=== PATIENT | male | born 1960 | race Asian ===

== ENCOUNTER 2024-01-23 21:33 | Emergency (ER) | payer OTHER, SELFPAY ==
[2024-01-23 21:37] VITALS: BP 122/75
[2024-01-23 21:39] VITALS: BP 122/75
[2024-01-23 21:43] VITALS: BMI 29.9
[2024-01-23 21:54] LABS: % Basophils 0.8 % (0-2); % Eosinophils 2.6 % (0-6); % Immature Granulocytes 0.9 % (0-0.5); % Lymphocytes 33.7 % (20.5-51.1); % Monocytes 7.7 % (1.7-9.3); % Neutrophils 54.3 % (42.2-75.2); Absolute Basophils 0.1 10^3/uL (0-0.2); Absolute Eosinophils 0.2 10^3/uL (0-0.7); Absolute Immature Granulocytes 0.1 10^3/uL (0-0.05); Absolute Lymphocytes 2.2 10^3/uL (1.2-3.4); Absolute Monocytes 0.5 10^3/uL (0.1-0.6); Absolute Neutrophils 3.5 10^3/uL (1.4-6.5); Hemoglobin 13.7 g/dL (13.0-18.0); Mean Corp Hgb Conc. 32.6 g/dL (33.0-37.0); Mean Corpuscular Hgb 24.1 pg (27.0-31.0); Mean Corpuscular Volume 73.8 fL (80.0-94.0); Mean Platelet Volume 9.5 fL (7.4-10.4); Nucleated Red Blood Cells % 0 % (-); Platelet Count 317 10^3/uL (130-400); Red Blood Cell Count 5.69 10^6/uL (4.70-6.10); Red Cell Dist. Width 15.6 % (11.5-14.5); White Blood Cell Count 6.5 10^3/uL (4.8-10.8)
--- NOTE | 2024-01-23 21:57 | ED.GENMED ---
History of Present Illness
<MARISA Rasmussen - Last Filed: 01/24/24 01:47>
General
Chief Complaint: Chest Pain
Time Seen by Provider: 01/23/24 21:57
History of Present Illness
History of Present Illness:
Pt is a 66 y/o male presenting with chest pain x1 month. He states he just went to [place] on vacation 1 month ago and began to experience symptoms. He states it feels like a pressure in his left breast that does not radiate anywhere. He states the
symptoms come on when he physically exerts himself. He states rest does not help and the symptoms usually just go away after 15-20 minutes. He states the past 2 days the symptoms have been constant and that is why he wanted to come to the hospital.
He was given aspirin and nitroglycerin by EMS which relieved his symptoms. He currently denies any symptoms. He states he has had similar symptoms in the past and it was reflux. He denies any dizziness, vision changes, SOB, palpitations, abdominal
pain, nausea, vomiting, diarrhea, constipation, swelling in the legs.
Phy Exam
<MARISA Rasmussen - Last Filed: 01/24/24 01:47>
Physical Exam
Physical Exam:
GENERAL: Alert , in no apparent distress
EYE: pupils equal and reactive
NECK: Supple, no significant adenopathy.
CARDIAC: Regular rate and rhythm .
LUNGS: Clear breath sounds bilaterally, no acute respiratory distress, no wheezes/rales/rhonchi
ABDOMEN: Soft, nondistended, nontender, no cvat
NEUROLOGICAL: Alert and oriented, no focal neuro deficits
SKIN: Warm and dry, skin intact.
MUSCULOSKELETAL: No edema, well perfused.
PSYCH: Normal and appropriate interaction.
Scores
<MARISA Rasmussen - Last Filed: 01/24/24 01:47>
Heart Score for Chest Pain Patients
STEMI patient?: No
History: Moderately Suspicious
ECG: Normal
Age: >/= 65 years
Risk Factors: >/= 3 Risk Factors or History of CAD
Troponin: </= Normal Limit
Heart Score for Chest Pain Patients: 5
Heart Score Risk: 20.3% MACE over next 6 weeks
Course
<Rusty Richardson [facility] - Last Filed: 01/24/24 01:47>
Orders/Labs/Results
Orders:
Orders
01/23/24 21:38
Electrocardiogram (*1) Urgent
Reason for Study: Chest Pain
Cardiac Monitoring- Treatment ONCE
EKG- Treatment ONCE
IV Insert/Care/Rem.- Treatment PRN
O2 Therapy [RESP] Urgent
Titrate/Wean O2 to maintain O2 sat greater than (%): 90
Special Instructions: Maintain sats >/=90%
Pulse Ox/spot Check [RESP] Urgent
Quantity: 1
Special Instructions: ON ROOM AIR
01/23/24 21:43
Complete Blood Count/With Diff Urgent
Comprehensive Metabolic Panel Urgent
Troponin I Urgent
01/23/24 23:24
CR Chest - 2 Views Urgent
Comment:
Reason For Exam: chest pain
01/24/24 00:38
Troponin I Urgent
Abnormal Lab Results
01/23/24
21:43
MCV 73.8 L fL
(80.0-94.0)
MCH 24.1 L pg
(27.0-31.0)
MCHC 32.6 L g/dL
(33.0-37.0)
RDW 15.6 H %
(11.5-14.5)
Abs Immat Gran (auto) 0.1 H 10^3/uL
(0-0.05)
Immature Gran % 0.9 H %
(0-0.5)
BUN 22 H mg/dl
(9-20)
Glucose 254 H mg/dl
(70-99)
01/23/24 21:43
01/23/24 21:43
Vital Signs
Initial and Last Documented VS:
Initial Vital Signs
BP
122/75
01/23/24 21:37
Last Documented Vital Signs
Temp Pulse Resp BP Pulse Ox
97.9 F 89 13 118/83 96
01/23/24 21:39 01/24/24 01:30 01/24/24 00:20 01/24/24 01:00 01/24/24 01:30
mae;Shayne Calle, - Last Filed: 01/24/24 01:35>
Orders/Labs/Results
Orders:
Orders
01/23/24 21:38
Electrocardiogram (*1) Urgent
Reason for Study: Chest Pain
Cardiac Monitoring- Treatment ONCE
EKG- Treatment ONCE
IV Insert/Care/Rem.- Treatment PRN
O2 Therapy [RESP] Urgent
Titrate/Wean O2 to maintain O2 sat greater than (%): 90
Special Instructions: Maintain sats >/=90%
Pulse Ox/spot Check [RESP] Urgent
Quantity: 1
Special Instructions: ON ROOM AIR
01/23/24 21:43
Complete Blood Count/With Diff Urgent
Comprehensive Metabolic Panel Urgent
Troponin I Urgent
01/23/24 23:24
CR Chest - 2 Views Urgent
Comment:
Reason For Exam: chest pain
01/24/24 00:38
Troponin I Urgent
Abnormal Lab Results
01/23/24
21:43
MCV 73.8 L fL
(80.0-94.0)
MCH 24.1 L pg
(27.0-31.0)
MCHC 32.6 L g/dL
(33.0-37.0)
RDW 15.6 H %
(11.5-14.5)
Abs Immat Gran (auto) 0.1 H 10^3/uL
(0-0.05)
Immature Gran % 0.9 H %
(0-0.5)
BUN 22 H mg/dl
(9-20)
Glucose 254 H mg/dl
(70-99)
01/23/24 21:43
01/23/24 21:43
Vital Signs
Initial and Last Documented VS:
Initial Vital Signs
BP
122/75
01/23/24 21:37
Last Documented Vital Signs
Temp Pulse Resp BP Pulse Ox
97.9 F 89 13 118/83 96
01/23/24 21:39 01/24/24 01:30 01/24/24 00:20 01/24/24 01:00 01/24/24 01:30
<MARISA Rasmussen - Last Filed: 01/24/24 01:47>
MDM/Problems Addressed
Differential Diagnosis Includes:
Differential includes but is not limited to IL, angina, GERD, hiatal hernia, pulmonary embolism, etc.
<MARISA Rasmussen - Last Filed: 01/24/24 01:47>
*Pulse Oximetry
Patient hypoxic: no
*EKG
Interpreted by ED Provider?: Yes
EKG Intrepretation Date: 01/23/24
Interpretation: abnormal
Comparison EKG: no comparison EKG present
Heart Rate: 97
Rate: normal
Rhythm: sinus
[place]: normal axis
Interval: normal interval
QRS Pattern: normal QRS
Ischemia: no ischemia
*Rotor Casting Machine Setup Operator Interpretation
Rate: Rotor Casting Machine Setup Operator- N/A
*Critical Care Note
Total Time (30-74mins, 75-104mins- exclusive of procedures): Not Applicable
ED Attending Note
<MARISA Rasmussen - Last Filed: 01/24/24 01:47>
-
Portions of this chart may have been created with voice recognition software.� Occasional wrong word or��sound alike� substitutions may have occurred due to the inherent limitations of voice recognition software.
<Shayne Calle DO - Last Filed: 01/24/24 01:35>
ED Attending Note
Patient seen and examined by attending physician: Yes
I performed the substantive portion of visit, reviewed & personally made and approve the management plan that is documented in note by myself or ROSA.: Yes
ED Attending Note:
I have reviewed Rusty's note.
Patient presents for evaluation due to episodic chest pain. Patient has been having pain with exertion for the past few weeks or so. Pain began 3 weeks ago. Patient states he began having the pain preceding his trip to [place]. While vacationing
he would have chest pain particularly at the end of the day when he became exhausted. Pain would last for 15 to 20 minutes and go away with rest. Patient became concerned today because he had episode without exertion. He was at rest. Pain is
gone now. It went away with nitro. Nitro was given by paramedics.
General: Awake, Alert, Oriented X3. No acute distress.
Vitals: unremarkable
Head: Atraumatic
Eyes: Pupils equal, EOMI
Throat: Airway intact, no exudates
Neck: Trachea midline
Lungs: Clear and equal b/l
Heart: Regular rate, no murmurs
Abd: Soft, Nontender, No pulsatile mass
Neuro: Nonfocal
Skin: Warm, dry, no rash
Extremities: pulses equal b/l, no edema
EKG: No ischemic changes
Plan is to repeat troponin 3 hours from the first. This troponin popsicle require hospitalization. If the troponin remains undetectable we will discharge him with outpatient follow-up on the chest pain outlined
Discharge Plan
Departure
Patient Disposition: Home (Routine Discharge)
Date of Disposition: 01/24/24
Time of Disposition: 01:34
Patient with high blood pressure during this ER visit?: No
Condition: Good
Discharge Problem:
Chest pain
Instructions: Chest Pain DCA Follow Up
Referrals:
Emmanuel Olson MD [Active] -
UNKNOWN - PT DOES,NOT KNOW [Family Provider] -
Interventions
Interventions:
*Risk Screen - Suicide Last Done: 01/23/24 21:40
*General Assessment Last Done: 01/23/24 21:39
*Neglect/Abuse Screening Last Done: 01/23/24 21:40
ED- Fall Risk Assessment Last Done: 01/23/24 21:40
*ED COVID-19 Vaccine History Last Done: 01/23/24 21:40
*Nursing Disposition Last Done: 01/24/24 01:43
ED- Cardiac Assessment Last Done: 01/23/24 21:41
Discharge Date and Time
Discharge Date/Time: 01/24/24 01:44
Print Language: BULGARIAN
[2024-01-23 22:00] VITALS: BP 102/64
[2024-01-23 22:14] LABS: ALT (SGPT) 23 U/L (0-50); AST (SGOT) 22 U/L (17-59); Albumin 4.3 g/dl (3.5-5.0); Alkaline Phosphatase 45 U/L (38-126); Blood Urea Nitrogen 22 mg/dl (9-20); Calcium 9.9 mg/dl (8.4-10.2); Carbon Dioxide 27 mmol/L (22-30); Chloride 104 mmol/L (98-107); Estimated Creatinine Clearance 75 ml/min; Glucose 254 mg/dl (70-99); Sodium 138 mmol/L (135-145); Total Bilirubin 0.3 mg/dl (0.2-1.3); Total Protein 6.4 g/dl (6.3-8.2); eGFR > 60.00
[2024-01-23 22:18] LABS: Troponin I < 0.012 ng/ml
[2024-01-23 23:00] VITALS: BP 116/69
[2024-01-24 00:20] VITALS: BP 115/70
[2024-01-24 01:00] VITALS: BP 118/83
[2024-01-24 01:08] LABS: Troponin I < 0.012 ng/ml
== END 2024-01-24 01:44 | disposition home or self-care (01) ==
LOC: EMR 21:33
PROVIDERS: Emergency Medicine; EMERGENCY PHYSICIAN Emergency Medicine
DX: R07.89 Other chest pain (principal); I25.10 Atherosclerotic heart disease of native coronary artery without angina pectoris; K21.9 Gastro-esophageal reflux disease without esophagitis
CPT/HCPCS: 99283; 71046; 80053; 84484; 85025; 93005

== ENCOUNTER → 2024-02-03 07:29 | Outpatient (REF) | payer OTHER, SELFPAY | LOC: DHCBC/DCA 07:29 | PROVIDERS: ATTENDING PHYSICIAN Internal Medicine Cardiovascular Disease; FAMILY PHYSICIAN Family Medicine | DX: R07.2 Precordial pain (principal) | CPT/HCPCS: 78452; 93017; A9500 ==

== ENCOUNTER 2024-02-13 06:26 | Day surgery (SDC) | payer OTHER, SELFPAY ==
[2024-02-13] VITALS (17 sets, daily range): BP systolic 109–142; BP diastolic 69–91; BMI 28.9
[2024-02-13] MEDS: NSS 243 ML IV (07:02)
[2024-02-13 07:26] LABS: Glucose - Point of Care 237 mg/dl (70-99)
--- NOTE | 2024-02-13 09:08 | ITS.CL.CATH ---
Addendum entered and electronically signed by Brad Metcalf MD 02/13/24 18:41:
Correction: The primary physician for this patient is Erwin Díaz MD not Anderson Walden MD
Original Note:
Rn Managed Care - Catheterization
Cardiac Catheterization
Procedure Report:
CARDIAC CATHETERIZATION REPORT
Date of Procedure: 02/13/2024
Referring: Brad Metcalf MD
Indication: Recent onset exertional angina with worsening pattern and markedly ischemic stress test
�
HEMODYNAMIC DATA
AO: 140/76
LV: 140/12
�
LEFT VENTRICULOGRAPHY: Normal left ventricular wall motion with EF 61%
�
CORONARY ANGIOGRAPHY
Dominance: Right
Left Main: Normal
LAD: 90% mid LAD stenosis immediately distal to the takeoff of the medium sized first diagonal branch and small first septal spout liner helper. The lesion spans the takeoff of the large second diagonal branch. The remainder of the LAD system has trivial
luminal disease.
Circumflex: 40-50% mid circumflex stenosis distal to the takeoff of the medium sized OM1 and proximal to the takeoff of the medium to large OM 2. The circumflex terminates with a large OM 3 which has mild luminal irregularities
RCA: The RCA is dominant with no significant disease in the RCA proper. The acute marginal branch supplies the PDA territory. The RCA terminates with two small to medium sized right posterolateral branches
Angioplasty: Large diagonal branch conclusion of the diagnostic study we proceeded with PCI of the LAD lesion. This was a bifurcation lesion, Navarrete (1,1,0). Heparin was used for anticoagulation. A 6 M[place] EBU 3.5 guide catheter was advanced to
the left coronary ostium. A short BMW wire was advanced through the lesion and preferred the large second diagonal branch. A long BMW wire was then advanced into the distal LAD. The LAD was predilated with a 2.25 x 10 Euphora balloon to 8 adri.
This was followed by placement of a 3.0 x 12 [place] frontier BOBBY deployed at 14 adri then postdilated with a 3.0 NC Euphora to 15 adri. The final angiographic result was outstanding with no residual stenosis and no compromise to the large now jailed
second diagonal branch. There were no procedural complications.
�
Closure Device: None-the procedure was performed via the right radial artery. The Ayaan's test was normal prior to the procedure.
�
Radiation (mGy): 861
DAP (cm2.Gy): 63.9
Fluoroscopy time: 9.6 minutes
�
CONCLUSIONS
1:�Normal left ventricular function with EF 61%
2:��CAD as described above
3. Successful stenting of 90% mid LAD stenosis using 3.0 x 12 [place] frontier BOBBY with outstanding angiographic result
4. Recommend dual antiplatelet therapy for 6-12 months then lifelong uninterrupted aspirin therapy
5. Continue aggressive risk factor modification efforts. We will increase the rosuvastatin dose to 20 mg daily at this time
�
�
Copy to: Brad Metcalf MD,Anderson Walden MD
�
Brad Metcalf MD, [facility], [facility]
--- NOTE | 2024-02-13 13:40 | W.PN.UPDATE ---
Update Note
Progress Note Update
64 yo male s/p PCI LAD (same day). He feels good, no cp, sob, katty diet, voiding, amb w/o dizziness, R rad site c/d/i, EKG SR no ST changes. He will be on DAPT ASA/Plavix. Cardiac rehab c/s. He will hold Janumet 48 hours post cath. He will f/u CLIENT SUCCESS DIRECTOR in
2 weeks. He is for d/c home after 2pm.
CONCLUSIONS
1:�Normal left ventricular function with EF 61%
2:��CAD as described above
3. Successful stenting of 90% mid LAD stenosis using 3.0 x 12 [place] frontier BOBBY with outstanding angiographic result
4. Recommend dual antiplatelet therapy for 6-12 months then lifelong uninterrupted aspirin therapy
5. Continue aggressive risk factor modification efforts. We will increase the rosuvastatin dose to 20 mg daily at this time
[2024-02-16 07:54] LABS: ACT-LR - POC > 397 Seconds (116-155)
== END 2024-02-13 14:30 | disposition home or self-care (01) ==
LOC: CATH 06:26
PROVIDERS: ATTENDING PHYSICIAN Internal Medicine Cardiovascular Disease
DX: I25.118 Atherosclerotic heart disease of native coronary artery with other forms of angina pectoris (principal); Z79.02 Long term (current) use of antithrombotics/antiplatelets; Z79.82 Long term (current) use of aspirin; E11.9 Type 2 diabetes mellitus without complications; I10 Essential (primary) hypertension
CPT/HCPCS: 82962; 85347; 93005; 93458; C1725; C1769; C1874; C1887; C1894; C9600; Q9967

== ENCOUNTER 2024-03-16 10:54 | Outpatient (RCR) | payer OTHER, SELFPAY ==
[2024-03-11 13:12] LABS: Glucose - Point of Care 198 mg/dl (70-99)
[2024-03-11 14:17] LABS: Glucose - Point of Care 133 mg/dl (70-99)
[2024-03-16 10:42] LABS: Glucose - Point of Care 224 mg/dl (70-99)
[2024-03-16 11:45] LABS: Glucose - Point of Care 203 mg/dl (70-99)
== END 2024-03-16 23:59 | disposition home or self-care (01) ==
LOC: CRHB 10:54
PROVIDERS: ATTENDING PHYSICIAN Internal Medicine Cardiovascular Disease
DX: I25.10 Atherosclerotic heart disease of native coronary artery without angina pectoris (principal); Z95.5 Presence of coronary angioplasty implant and graft
CPT/HCPCS: 82962; G0422; G0423

== ENCOUNTER 2024-08-04 04:55 | Inpatient (IN) | payer OTHER, SELFPAY ==
[2024-08-03 22:00] VITALS: BP 134/82
[2024-08-03 22:32] LABS: % Basophils 0.5 % (0-2); % Eosinophils 0.5 % (0-6); % Immature Granulocytes 1.3 % (0-0.5); % Lymphocytes 15.7 % (20.5-51.1); % Monocytes 4.5 % (1.7-9.3); % Neutrophils 77.5 % (42.2-75.2); Absolute Basophils 0.1 10^3/uL (0-0.2); Absolute Eosinophils 0.1 10^3/uL (0-0.7); Absolute Immature Granulocytes 0.1 10^3/uL (0-0.05); Absolute Lymphocytes 1.6 10^3/uL (1.2-3.4); Absolute Monocytes 0.5 10^3/uL (0.1-0.6); Mean Corpuscular Hgb 24.1 pg (27.0-31.0); Mean Corpuscular Volume 75.4 fL (80.0-94.0); Mean Platelet Volume 9.2 fL (7.4-10.4); Nucleated Red Blood Cells % 0 % (-); Platelet Count 378 10^3/uL (130-400); Red Blood Cell Count 6.63 10^6/uL (4.70-6.10); Red Cell Dist. Width 17.4 % (11.5-14.5); White Blood Cell Count 10.4 10^3/uL (4.8-10.8)
[2024-08-03 22:44] LABS: ALT (SGPT) 33 U/L (0-50); AST (SGOT) 29 U/L (17-59); Albumin 5.1 g/dl (3.5-5.0); Alkaline Phosphatase 50 U/L (38-126); Blood Urea Nitrogen 18 mg/dl (9-20); Calcium 10.2 mg/dl (8.4-10.2); Carbon Dioxide 27 mmol/L (22-30); Chloride 97 mmol/L (98-107); Glucose 171 mg/dl (70-99); Lipase 75 U/L (23-300); Potassium 4.5 mmol/L (3.5-5.1); Sodium 136 mmol/L (135-145); Total Bilirubin 0.6 mg/dl (0.2-1.3); Total Protein 7.7 g/dl (6.3-8.2); eGFR > 60.00
[2024-08-03 23:22] VITALS: BMI 29.4
[2024-08-03 23:24] VITALS: BP 133/83
[2024-08-04] VITALS (10 sets, daily range): BP systolic 124–140; BP diastolic 77–94; BMI 28.6
--- NOTE | 2024-08-04 02:15 | ED.GENMED ---
History of Present Illness
General
Chief Complaint: Abdominal Symptoms
Source: patient
Time Seen by Provider: 08/04/24 01:29
Nursing documentation reviewed up to this point in time: agreed with
History of Present Illness
History of Present Illness:
Pleasant 64-year-old male who presents with left upper quadrant abdominal pain. Patient states that this has been present for the last day. He is on Mounjaro, and he thinks that this is related to that medication. He was on Ozempic and had very
similar but not as severe symptoms. Patient is diabetic and on insulin. He does have cardiac history though denies any chest pain or shortness of breath at this time. Denies fever or chills. States that he has nausea with several episodes of
vomiting.
Review of Systems
Review of Systems
Allergies reviewed?: Yes
All Other Systems: ROS reviewed and negative except as documented in HPI and ROS
ABD/GI: Reports abdominal pain, nausea and vomiting
Phy Exam
Physical Exam
Physical Exam:
Physical Exam
Vital signs and allergy list reviewed and agreed with.
GENERAL: Alert , in moderate apparent distress, uncomfortable appearing
EYE: pupils equal, EOMI, anicteric
NECK: Supple, no significant adenopathy. No masses. Trachea midline
ENT: Oropharynx is clear, mmm.
CARDIAC: Regular rate and rhythm . No M/R/G
LUNGS: Clear breath sounds bilaterally, no acute respiratory distress, no wheezes/rales/rhonchi
ABDOMEN: Distended. Diffuse tenderness without focal tenderness to palpation, no cvat. Diminished bowel sounds in the lower quadrants.
NEUROLOGICAL: Alert and oriented, no focal neuro deficits
SKIN: Warm and dry, skin intact.
MUSCULOSKELETAL: No edema, well perfused. Moves all 4 extremities
PSYCH: Normal and appropriate interaction.
Course
Orders/Labs/Results
Orders:
Orders
08/03/24 22:13
Complete Blood Count/With Diff Urgent
Comprehensive Metabolic Panel Urgent
Lipase Urgent
08/04/24 02:09
CT Abd/pelvis W Iv Cont Urgent
Comment:
Reason For Exam: abd distention, pain
08/04/24 02:10
Morphine Sulfate 4 mg IV NOW STA
Ondansetron Injectable [Zofran] 4 mg IV NOW STA
08/04/24 03:55
NG Tube [GI tube insertion- Treatment] ONCE
0.9% Sodium Chloride 1000 ml [Nss] 1,000 ml IV BOLUS
08/04/24 04:04
Lidocaine 2% [Lidocaine Uro-Jet 2%] 1 syringe .ROUTE .STK-MED ONE
08/04/24 04:43
Admit/Transfer Patient As Directed
Co-Sign Provider:
Level of Care: Inpatient admission
Assign to:: Medical/Surgical
Physician / Group: Devon
Diagnosis: SBO
Reason for Hospitalization: SBO
Expected length of stay greater than two midnights?: Yes
ELOS- Estimated Length of Stay in days: 3
I certify the patient meets the requirements for IP care: Yes
PRN Pain Medication Management As Directed
May give lesser potent ordered pain med per pt: Yes
preference::
Protocol:: Medication orders for pain may be administered in a
manner that supports deferring to patient preference
when the pt is:
- Requesting an ordered lesser potent pain medication.
Least to most potent pain medications are defined
as: acetaminophen < NSAID < tramadol < opioids
(morphine, oxycodone, hydromorphone).
- Requesting a lesser dose of the same medication IF
ORDERED.
- Requesting a less intrusive route of administration
if both routes are prescribed by the provider (PO <
IV).
08/04/24 04:44
Code Status As Directed
Resuscitation Status: Full Code
Abnormal Lab Results
08/03/24
22:13
RBC 6.63 H 10^6/uL
(4.70-6.10)
MCV 75.4 L fL
(80.0-94.0)
MCH 24.1 L pg
(27.0-31.0)
MCHC 32.0 L g/dL
(33.0-37.0)
RDW 17.4 H %
(11.5-14.5)
Abs Immat Gran (auto) 0.1 H 10^3/uL
(0-0.05)
Absolute Neuts (auto) 8.0 H 10^3/uL
(1.4-6.5)
Immature Gran % 1.3 H %
(0-0.5)
Neutrophils % 77.5 H %
(42.2-75.2)
Lymphocytes % 15.7 L %
(20.5-51.1)
Chloride 97 L mmol/L
(98-107)
Glucose 171 H mg/dl
(70-99)
Albumin 5.1 H g/dl
(3.5-5.0)
08/03/24 22:13
08/03/24 22:13
Vital Signs
Initial and Last Documented VS:
Initial Vital Signs
Temp Pulse Resp BP Pulse Ox
97.9 F 105 16 134/82 96
08/03/24 22:00 08/03/24 22:00 08/03/24 22:00 08/03/24 22:00 08/03/24 22:00
Last Documented Vital Signs
Temp Pulse Resp BP Pulse Ox
99.2 F 101 19 140/84 96
08/04/24 01:14 08/04/24 02:33 08/04/24 02:33 08/04/24 02:33 08/04/24 03:45
MDM/Problems Addressed
Differential Diagnosis Includes:
64-year-old male with abdominal pain. Concern for bowel obstruction. Differential includes bowel obstruction, gastroenteritis, diverticulitis, gastroparesis
*Pulse Oximetry
Patient hypoxic: no
*Critical Care Note
Total Time (30-74mins, 75-104mins- exclusive of procedures): Not Applicable
Update Note
Update Note:
CT ABDOMEN/PELVIS WITH CONTRAST
IMPRESSION:
1. Dilated loops of small bowel measuring up to 4 cm, with transition point in the right lower quadrant, likely secondary to internal hernia.
2. Normal gallbladder and appendix
Incidentals:
- No obstructive uropathy.
- No hepatic or pancreatic mass.
- No abdominal aortic aneurysm.
- No acute osseous abnormality.
- No acute abnormality within the visualized lungs. Calcified coronary atherosclerosis
- No acute abnormality within the visualized soft tissues.
Case discussed with Dr. HELLER of the ED at 313 AM ET
ED Attending Note
ED Attending Note
Patient seen and examined by attending physician: Yes
-
Portions of this chart may have been created with voice recognition software.� Occasional wrong word or��sound alike� substitutions may have occurred due to the inherent limitations of voice recognition software.
Discharge Plan
Departure
Patient Disposition: Admit
Date of Disposition: 08/04/24
Time of Disposition: 03:25
Admit to: Telemetry
Presentation/result/management discussed w/ accepting MD/DO: Hospitalist
Discharge Problem:
SBO (small bowel obstruction), Abdominal pain, Nausea & vomiting, Medication adverse effect
Interventions
Interventions:
*Risk Screen - Suicide Last Done: 08/03/24 22:00
*General Assessment Last Done: 08/03/24 22:00
*Neglect/Abuse Screening Last Done: 08/03/24 22:00
*ED COVID-19 Vaccine History Last Done: 08/03/24 23:22
XV-Ptkggu-Wsghpfwici Assessment Last Done: 08/04/24 03:10
[2024-08-04] MEDS: ZOFRAN 4 MG IV (02:31)
[2024-08-04] MEDS: MORPHINE SULFATE 4 MG IV (02:36)
[2024-08-04] MEDS: NSS 1000 IV (04:09)
--- NOTE | 2024-08-04 04:47 | HPS.HSE ---
Family Physician
-
Family Physician: Erwin Díaz
Chief Complaint
-
Abdominal Pain / Bloating
History of Present Illness
Patient is a 64y M with PMH significant for ASCVD, HTN and DM-II who presents to ED complaining of abdominal distention / pain and N/V. Patient states that he developed marked abdominal distention, abdominal pain and nausea with 2 episodes of
non-bloody emesis in the past 24-48 hours. Patient states that he has had similar issues in the recent past - but much less severe and quickly resolving. He states that he has had prior episodes of postprandial emesis due to these symptoms.
Patient states that he has continued to have BM and pass flatus. He denies any fevers / chills, urinary complaints, chest pain or dyspnea.
Patient denies any prior abdominal surgeries.
Medical History
Past Medical History
Past Medical History: Reports Other
Additional Past Medical History:
ASCVD
Hypertension
DM-II
GERD / Hiatal Hernia
DDD
Past Surgical History: Reports Other
Additional Past Surgical History:
PTCA with Stent
Social History
Tobacco: Non-smoker
Alcohol: None
Drug: None
Family History
Family History: Other (Father: DM Mother: CAD)
Allergies / Home Medications
Allergies reflects when Allergies were last updated in [facility].
Home Medications with original date entered in [facility]
Allergy/Medication List:
Allergies
Allergy/AdvReac Type Severity Reaction Status Date / Time
No Known Allergies Allergy Verified 08/03/24 23:22
Home Medications
clopidogrel 75 mg tablet 75 mg PO DAILY #90 tabs 02/13/24
dapagliflozin propanediol 10 mg tablet (Farxiga) 10 mg PO DAILY 02/13/24
esomeprazole magnesium 20 mg capsule,delayed release (Nexium) 20 mg PO DAILY 02/13/24
fenofibric acid 105 mg tablet 135 mg PO DAILY 02/13/24
losartan 50 mg-hydrochlorothiazide 12.5 mg tablet 1 tab PO DAILY 02/13/24
nitroglycerin 0.4 mg sublingual tablet 0.4 mg sublingual [id number] PRN chest pain #25 tabs 02/13/24
rosuvastatin 20 mg tablet 20 mg PO DAILY #90 tabs 02/13/24
aspirin 81 mg chewable tablet 81 mg PO DAILY 08/03/24
insulin pump-infusion set-blood glucose meter kit 08/03/24
metformin 1,000 mg tablet 1,000 mg PO BID 08/03/24
Review of Systems
-
History Source: Patient
A 12 point ROS was completed and negative except as noted: Yes
Constitutional: Denies Fever or Chills
Respiratory: Denies Cough or Trouble Breathing
Cardiac: Denies Chest Pain or Palpitations
Abdomen/GI: Reports Abdominal Pain, Nausea, Vomiting and Other (Distention); Denies Diarrhea, Constipated, Bloody Stools or Black Stools
: Denies Dysuria or Frequency
Musculoskeletal: Denies Joint Pain or Edema
Neurological: Denies Dizzy or Headache
Psych: Denies Depression or Anxiety
Physical Exam
Vital Signs
Vital Signs
Temp Pulse Resp BP Pulse Ox
99.2 F 101 19 140/84 96
08/04/24 01:14 08/04/24 02:33 08/04/24 02:33 08/04/24 02:33 08/04/24 03:45
Physical Exam
General: Other (64y M in mild distress due to abdominal distention / pain.)
HEENT: Moist mucous membranes, PERRLA and Other (NG in place draining light brown liquid.)
Respiratory: Clear; No Wheezes, Rales or Rhonchi
Cardiac: S1/S2 and Regular Rhythm; No Murmur
GI: Other (Abdomen is moderately distended. No focal tenderness. Hyperactive bowel sounds. )
Musculoskeletal: No Clubbing, No Cyanosis and No Edema
Neuro: AO x 3
Laboratory Results
-
08/03/24 22:
08/03/24:
Laboratory Results
Total Bilirubin 0.6 mg/dl (0.2-1.3) 08/03/24 22:
AST 29 U/L (17-59) 08/03/24:
ALT 33 U/L (0-50) 08/03/24:
Alkaline Phosphatase 50 U/L (38-126) 08/03/24:
Lipase 75 U/L (23-300) 08/03/24:
Impression/Plan
-
A/P: Patient is a 64y M with PMH significant for ASCVD, HTN and DM-II who presents to ED complaining of abdominal pain, distention and N/V.
SBO
- Admit for further evaluation and treatment.
- SBO in [place] abdomen and CT scan suggests internal hernia.
- Continue NG decompression.
- Supportive care with IVFs, NPO, pain control and antiemetics.
- Surgery evaluation for additional recommendations - may require operative intervention.
- Follow for any new / worsening symptoms.
ASCVD
- Stable. No current chest pain, dyspnea, etc.
- Continue ASA uninterrupted if able.
- Hold other PO medications acutely.
Benign Hypertension
- Holding PO meds acutely.
- Resume usual regimen once able to take POs.
- Add IV agent if needed for very high blood pressures.
DM-II
- Stable. Hold PO medications / Mounjaro / etc.
- Follow glucose and cover with SSI as needed.
- Update A1C.
GERD / HH
- Stable. Continue PPI daily.
DVT Prophylaxis: SCDs
Code Status: Full
[2024-08-04] MEDS: LR 1000 IV ×2 (05:57→17:15)
[2024-08-04 06:06] LABS: Hematocrit 45.2 % (39.0-52.0); Hemoglobin 14.6 g/dL (13.0-18.0); Mean Corp Hgb Conc. 32.3 g/dL (33.0-37.0); Mean Corpuscular Hgb 24.5 pg (27.0-31.0); Mean Corpuscular Volume 75.7 fL (80.0-94.0); Mean Platelet Volume 8.9 fL (7.4-10.4); Platelet Count 330 10^3/uL (130-400); Red Blood Cell Count 5.97 10^6/uL (4.70-6.10); Red Cell Dist. Width 16.8 % (11.5-14.5); White Blood Cell Count 8.8 10^3/uL (4.8-10.8)
[2024-08-04 06:20] LABS: Blood Urea Nitrogen 17 mg/dl (9-20); Calcium 9.1 mg/dl (8.4-10.2); Carbon Dioxide 21 mmol/L (22-30); Chloride 104 mmol/L (98-107); Estimated Creatinine Clearance 83 ml/min; Glucose 132 mg/dl (70-99); Potassium 4.2 mmol/L (3.5-5.1); Sodium 137 mmol/L (135-145); eGFR > 60.00
[2024-08-04] MEDS: NSS (PRESERVATIVE FREE) 10 ML IV (08:20)
[2024-08-04] MEDS: LOW STRENGTH ASPIRIN 81 MG PO (08:20)
[2024-08-04] MEDS: FLUSH (NSS) 1 FLUSH IV (08:20)
[2024-08-04] MEDS: PROTONIX IV 40 MG IV (08:20)
--- NOTE | 2024-08-04 09:00 | PTCARENOTE ---
Received pt from ER via stretcher, accompanied by ER staff. Pt AAO x3, BANDA well, ambulatory to bed with minimal assistance, no c/o weakness/dizziness. VSS. On room air- pulse ox 98%, no SOB noted. Abd soft, round, BS (+). pt reports (+) flatus.
Pt NPO except ice chips. Rt nares NGT to LIWS draining small amts arreaga secretions. Pt DTV, urinal at bedside. Afebrile; skin W/D/I. Knee-high SCDs applied. IVF's RL @ 100 ml/hr infusing via lt AC site without x of infiltration. Pt has own BCM
and insulin pump on lt upper arm. oriented to 4[place], currently resting comfortably. Will continue to monitor.
--- NOTE | 2024-08-04 09:16 | W.PN.HOSP.TC ---
Addendum entered and electronically signed by Lg Carroll MD 08/04/24 10:23:
Diabetes: Patient using insulin pump occasionally. Will hold at this point given acute GI issues
On additional questioning patient recently on GLP-1/Mounjaro. Current presentation with recurrent emesis, questionably at least partial small bowel obstruction could be related to GLP-1 side effects. Will readdress.
Original Note:
Today's Communication/Plan
-
NG tube.
Surgery evaluation
IV fluids monitoring electrolytes
Assessment / Plan
Assessment / Plan
Impression:
Patient is a 64y M with PMH significant for ASCVD, HTN and DM-II who presents to ED complaining of abdominal pain, distention and N/V.
Small bowel obstruction
Other conditions:
ASCVD.
Benign hypertension
Type 2 diabetes
GERD
Plan:
SBO.
CT scan on presentation with dilated bowel loops/air-fluid levels, likely transition point in the right lower quadrant
No prior abdominal surgeries
Patient reports colonoscopy last year with polyps removed.
NG tube placed
NPO.
Surgery evaluation
Continue IV fluids
Monitor and replete electrolytes
ASCVD.
Essential hypertension
Left heart cath 02/13.
Normal LVEF at 61%. Successful stenting of 90% mid LAD stenosis with BOBBY. On DAPT with aspirin and Plavix
No chest pain upon presentation
Continue aspirin if possible. Hold Plavix acutely
Hold losartan/HCTZ
Diabetes type 2.
N.p.o. status.
Outpatient regimen including Mounjaro, metformin, Farxiga
Insulin basal bolus protocol.
Update hemoglobin A1c
GERD.
Continue PPI
Anticipated Discharge: 24 - 48 hours
Subjective/Interval History
-
Date of Service: August 04, 2024
Objective Data
-
Labs:
Laboratory Results
08/03/24 08/04/24
22:13 05:50
WBC 10.4 8.8
Hgb 16.0 14.6
Hct 50.0 45.2
Plt Count 378 330
Sodium 136 137
Potassium 4.5 4.2
Chloride 97 L 104
Carbon Dioxide 27 21 L
BUN 18 17
Creatinine 0.9 0.8
Glucose 171 H 132 H
Calcium 10.2 9.1
Total Bilirubin 0.6
AST 29
ALT 33
Alkaline Phosphatase 50
Vital Signs:
Vital Signs
Temp Pulse Resp BP Pulse Ox
97.8 F 96 18 139/77 98
08/04/24 07:44 08/04/24 07:44 08/04/24 07:44 08/04/24 07:44 08/04/24 08:28
I&O
08/03/24 08/04/24 08/05/24
06:59 06:59 06:59
Intake Total 1000 / 1000
Output Total 105 / 105
Balance 895 / 895
Physical Exam
-
General: Well Developed and No Apparent Distress
HEENT: Normocephalic, Atraumatic and Moist Mucous Membranes
Respiratory: Clear to Auscultation
Cardiac: Regular Rhythm and S1/S2; Negative Murmur, Rub or Gallop
GI: Soft, Nontender, Distended and Other (NG tube is in place. Abdomen is distended with hypoactive bowel sounds, nontender); Negative Organomegaly
Rectal: Deferred by Provider
Musculoskeletal: No Clubbing, No Cyanosis and No Edema
Skin: Negative Rash
Neuro: Nonfocal/Grossly Intact
[2024-08-04 11:41] LABS: Glycohemoglobin (HgbA1c) 7.5 % (4.0-5.6)
--- NOTE | 2024-08-04 12:13 | PN.DE.MGMTRT ---
Insulin Management
- -
08/04/2024 Diabetes Management for Insulin Pump
Patient admitted 08/04 with c/o abdominal pain - SBO. PMH ASCVD, HTN, type 2 diabetes, GERD, hiatal hernia. Prior to admission was taking Farxiga, Mounjaro and metformin. A1C on admission 7.5%, cr .8, eGFR > 60.
Patient is awake alert and oriented able to discuss diabetes management. Sees Spd Tech routinely for diabetes care. Currently using the OmniPod 5 with DexCom G7, and novolog.
Currently ordered corrective insulin; will stop.
Patient is NPO, glucose fasting this AM 132. Will continue OmniPod; will not restart PO meds due to NPO. Insulin pump settings:
Basal Carb Ratio Correction target
12am 1 8 25 110
8am 1.2 8 25 110
24 hour basal total 27.2
Active insulin 4 hours.
Pod expires on Friday, requested son bring additional pods and insulin whenever he returns to visit, no urgency.
Will follow
Discussed with nurse.
Diabetes History
- -
Type of Diabetes: 2 requiring insulin
Pre-Admission Diabetes Regimen
08/03/24 08/04/24
22:13 05:50
Creatinine 0.9 0.8
Lab Results
Hemoglobin A1c 7.5 % (4.0-5.6) H 08/04/24 05:50
Insulin Pump Settings
IP Diabetes Regimen
08/03/24 08/04/24
22:13 05:50
Glucose 171 H 132 H
Meal type: Breakfast
Amount consumed: 0
Patient Education
[2024-08-04 12:19] LABS: Glucose - Point of Care 126 mg/dl (70-99)
[2024-08-04] MEDS: HURRICAINE SPRAY 1 APPLIC TOPICAL ×2 (13:26→23:00)
--- NOTE | 2024-08-04 13:34 | CON.GS ---
Consultation
-
Requesting Provider: Carly
Performing Provider: Bud
Reason for Consultation: pSBO
Medical History
-
Chief Complaint: Abd pain
History of Present Illness:
64M with acute onset abd pain that began yesterday after eating greenlandic food which is not typical for him. He describes severe nonradiating abd pain a/w n/v. He has been passing flatus throughout including today. He denies n/v with NGT to suction.
He reports similar episodes for many years beginning when he started ozempic some years ago. He stopped the medication and he was 'perfect' after that. Then he started mounjaro a year ago and since then he has had these symptoms intermittently, with
pain/n/v after eating, though this episode the pain was worse than usual. Denies f/c. On DAPT for cardiac stent.
Past Medical History
Past Medical History: Other (ASCVD Hypertension DM-II GERD / Hiatal Hernia DDD)
Past Surgical History: Other (cardiac stents)
Social History
Tobacco: Non-Smoker
Alcohol: None
Drug: None
Employment: Employed
Family History
Family History: Reviewed & Noncontributory
Allergies / Home Medications
Allergy/AdvReac Type Severity Reaction Status Date / Time
No Known Allergies Allergy Verified 08/03/24 23:22
�Medication �Instructions �Recorded �Confirmed �Type
clopidogrel 75 mg tablet 75 mg PO DAILY #90 tabs 02/13/24 08/04/24 Rx
dapagliflozin propanediol 10 mg 10 mg PO DAILY 02/13/24 08/04/24 History
tablet (Farxiga)
esomeprazole magnesium 20 mg 20 mg PO DAILY 02/13/24 08/04/24 History
capsule,delayed release (Nexium)
fenofibric acid 105 mg tablet 135 mg PO DAILY 02/13/24 08/04/24 History
losartan 50 mg-hydrochlorothiazide 1 tab PO DAILY 02/13/24 08/04/24 History
12.5 mg tablet
nitroglycerin 0.4 mg sublingual 0.4 mg sublingual [id number] PRN 02/13/24 08/03/24 Rx
tablet chest pain #25 tabs
rosuvastatin 20 mg tablet 20 mg PO DAILY #90 tabs 02/13/24 08/03/24 Rx
aspirin 81 mg chewable tablet 81 mg PO DAILY 08/03/24 08/04/24 History
insulin pump-infusion set-blood 08/03/24 08/03/24 History
glucose meter kit
metformin 1,000 mg tablet 1,000 mg PO BID 08/03/24 08/04/24 History
Mounjaro 7.5 units SC WEEKLY 08/04/24 08/04/24 History
Review of Systems
-
A 10 point review of systems was completed, and was negative except as per HPI.
Physical Exam
Vital Signs
Temp Pulse Resp BP Pulse Ox
97.8 F 96 18 139/77 98
08/04/24 07:44 08/04/24 07:44 08/04/24 07:44 08/04/24 07:44 08/04/24 08:28
08/03/24 08/04/24 08/05/24
06:59 06:59 06:59
Actual Weight 82.5 kg 80.428 kg
Body Mass Index (BMI) 28.6
Lab Results
08/04/24 05:50
08/04/24 05:50
WBC 8.8 10^3/uL (4.8-10.8) 08/04/24 05:50
Hgb 14.6 g/dL (13.0-18.0) 08/04/24 05:50
Hct 45.2 % (39.0-52.0) 08/04/24 05:50
Plt Count 330 10^3/uL (130-400) 08/04/24 05:50
Abs Immat Gran (auto) 0.1 10^3/uL (0-0.05) H 08/03/24 22:13
Neutrophils % 77.5 % (42.2-75.2) H 08/03/24 22:13
Physical Exam
General: Well Developed, Well Nourished and No Apparent Distress
GI: Soft, Non Tender and Distended (moderate distention without ttp)
Skin: Warm and Dry
Neuro: AO x 3
Psych: Calm
Data Reviewed
-
CT Scan: Image Personally Visualized and interpreted, Report Reviewed by me, Discussed with Physician and Discussed with Patient
Labs: Labs Reviewed by me and Discussed with Patient
Assessment / Plan
-
64M with pSBO possibly 2/2 GLP1 agonist
AFVSS, pain resolved, nasuea resolved with NGT to suction
Minimal NGT output, clear. bile tinged
Passing flatus
Labs unremarkable
CT A/P with dilated proximal sb loops and decompressed distal loops with aparent transition point in right mid-abdomen, no signs of bowel threat or compromise, air and stool in proximal colon, descending colon decompressed but air tracks to rectum
On DAPT last dose ASA this am
Plan:
Given lack of surgical history, DAPT and possible GLP1 source, no leukocytosis or fever, would proceed with non-op mgmt
Cont NGT for today, if continues to improve would consider clamp trial tomorrow vs PO contrast study
NPO/IVF
Hold ASA/plavix
SVT ppx
prn pain meds/anti-emetics
Will follow
--- NOTE | 2024-08-04 16:24 | CM ---
Alert awake oriented patient who lives with his Juvenal who lives in a 2 story home with 1 step to enter and 15 steps to bed and bathroom. He is independent in driving and in all activities of daily living.He was offered VN he declined need.His
will drive him home. Pt has NG tube NPO.
No VN hx / No SNF history
Pharmacy [facility]
PCP DR Díaz
PLAN Home Declined VN
[2024-08-04 18:15] LABS: Glucose - Point of Care 98 mg/dl (70-99)
--- NOTE | 2024-08-04 20:14 | PTCARENOTE ---
Pt was transfered to room 425 with all his belongings. Report was provided to casino shift manager RN by day shift RN. No other complaints noted at this time.Plan of care continued.
[2024-08-05 00:01] LABS: Glucose - Point of Care 98 mg/dl (70-99)
[2024-08-05] MEDS: LR 1000 IV ×2 (02:38→14:00)
[2024-08-05] MEDS: HURRICAINE SPRAY 1 APPLIC TOPICAL (05:42)
[2024-08-05 05:58] LABS: Glucose - Point of Care 99 mg/dl (70-99)
[2024-08-05 06:00] VITALS: BMI 28.9
[2024-08-05 07:33] VITALS: BP 132/83
--- NOTE | 2024-08-05 07:59 | PN.DE.MGMTRT ---
Insulin Management
- -
08/05/2024 Diabetes Management for Insulin Pump Follow up
Patient admitted 08/04 with c/o abdominal pain - SBO. PMH ASCVD, HTN, type 2 diabetes, GERD, hiatal hernia. Prior to admission was taking Farxiga, Mounjaro and metformin. A1C on admission 7.5%, cr .8, eGFR > 60.
Patient is awake alert and oriented able to discuss diabetes management. Sees Acoustic Warfare Analyst routinely for diabetes care. Currently using the OmniPod 5 with DexCom G7, and novolog.
NG tube removed this AM, patient ordered clear liquid diet. Glucose range yesterday 132 to 98; glucose fasting this AM 99. Will continue OmniPod; will consider restart of Farxiga and metformin tomorrow after eval of how he is tolerating clear
liquid diet.
Insulin pump settings:
Basal Carb Ratio Correction target
12am 1 8 25 110
8am 1.2 8 25 110
24 hour basal total 27.2
Active insulin 4 hours.
Pod expires on Friday, requested son bring additional pods and insulin whenever he returns to visit, no urgency.
Recommend to NOT restart Mounjaro at discharge as patient relates onset of symptoms related to Mounjaro currently and same symptoms with Ozempic which he took in the past.
Will follow
Discussed with nurse
Diabetes History
- -
Type of Diabetes: 2 requiring insulin
Pre-Admission Diabetes Regimen
Lab Results
Hemoglobin A1c 7.5 % (4.0-5.6) H 08/04/24 05:50
Insulin Pump Settings
IP Diabetes Regimen
08/04/24 08/04/24 08/05/24
12:15 18:13 00:00
POC Glucose 126 H 98 98
08/05/24
05:57
POC Glucose 99
Meal type: Dinner
Meal type: Lunch
Meal type: Breakfast
Amount consumed: 0
Amount consumed: 0
Amount consumed: 0
Patient Education
[2024-08-05] MEDS: LOW STRENGTH ASPIRIN 81 MG PO (08:18)
[2024-08-05] MEDS: NSS (PRESERVATIVE FREE) 10 ML IV (08:18)
[2024-08-05] MEDS: PROTONIX IV 40 MG IV (08:18)
--- NOTE | 2024-08-05 10:22 | W.PN.GS2 ---
Today's Communication / Plan
-
`
Assessment / Plan
-
Assessment: 64-year-old male with probable dysmotility/small bowel pseudoobstruction secondary to GLP-1 -Mounjaro; previous similar side effect with other GLP-1 3 years ago
No radiographic findings highly suggestive of mechanical obstruction; no prior history of abdominal surgeries
Plan: NG tube removed
Clear liquid diet
If tolerates p.o. challenge advance
If fails p.o. challenge would obtain contrast imaging of the GI tract either small bowel follow-through or CT with contrast
Subjective Data
-
Date of Service: August 05, 2024
Patient seen and examined.
Feels well other than sore throat from NG tube
No nausea, no vomiting, does not feel abdominal bloating or distention
Passing flatus.
Appetite returning
Abdomen feeling normal
Objective Data
-
Intake and Output
08/04/24 08/05/24 08/06/24
06:59 06:59 06:59
Intake Total 2560 / 2560
Output Total 705 / 705
Balance 1855 / 1855
Intake:
Oral fluids 180 / 180
IV fluids (Total) 2200 / 2200
n22 1000 / 1000
Amount instilled into GI Tube ( 180 / 180
Total)
Carr Sump 180 / 180
Output:
Gastrointestinal tube output ( 705 / 705
Total)
Carr Sump 600 / 600
Other:
Number of approximated MODERATE 1
amounts of urine
Vital Signs
Temp Pulse Resp BP Pulse Ox
97.6 F 101 18 132/83 96
08/05/24 07:33 08/05/24 07:33 08/05/24 07:33 08/05/24 07:33 08/05/24 07:33
Lab Results
08/04/24 05:50
08/04/24 05:50
Calcium 9.1 mg/dl (8.4-10.2) 08/04/24 05:50
Total Bilirubin 0.6 mg/dl (0.2-1.3) 08/03/24 22:13
AST 29 U/L (17-59) 08/03/24 22:13
ALT 33 U/L (0-50) 08/03/24 22:13
Alkaline Phosphatase 50 U/L (38-126) 08/03/24 22:13
Total Protein 7.7 g/dl (6.3-8.2) 08/03/24 22:13
Albumin 5.1 g/dl (3.5-5.0) H 08/03/24 22:13
Physical Exam
-
NAD AAOx3
ABD: Soft, nondistended, nondistended, nontender
NG tube in place with light gastric contents, not bilious
--- NOTE | 2024-08-05 14:13 | CM ---
Patient seen at bedside. Patient with visitor stated that he was happy to be on clears and that he had his tube discontinued. Patient does not anticipate any needs at this time when he is for discharge. CM will continue to follow for discharge
planning needs.
Plan; home with no needs.
[2024-08-05 14:45] LABS: Glucose - Point of Care 104 mg/dl (70-99)
[2024-08-05 15:10] VITALS: BP 140/77
--- NOTE | 2024-08-05 16:18 | W.PN.HOSP.TC ---
Today's Communication/Plan
-
Advance diet
Monitor
Assessment / Plan
Assessment / Plan
Impression:
Patient is a 64y M with PMH significant for ASCVD, HTN and DM-II who presents to ED complaining of abdominal pain, distention and N/V.
Small bowel obstruction
Other conditions:
ASCVD.
Benign hypertension
Type 2 diabetes
GERD
Plan:
SBO.
CT scan on presentation with dilated bowel loops/air-fluid levels, likely transition point in the right lower quadrant
No prior abdominal surgeries
Patient reports colonoscopy last year with polyps removed.
Also concern for possible GLP-1 side effects. Patient reports nausea and vomiting been on Ozempic prior to be replaced with Mounjaro.
Overall improved.
NG tube removed.
Diet has been advanced as per surgery
If tolerates solid diet, consider discharge home and discontinue GLP-1 inhibitor
If recurrent symptoms will need repeat contrast study either CT scan or small bowel follow-through
ASCVD.
Essential hypertension
Left heart cath 02/13.
Normal LVEF at 61%. Successful stenting of 90% mid LAD stenosis with BOBBY. On DAPT with aspirin and Plavix
No chest pain upon presentation
Continue aspirin if possible. Hold Plavix acutely
Hold losartan/HCTZ
Diabetes type 2.
Hemoglobin A1c 7 point
Diet has been advanced
Maintain insulin pump
Outpatient regimen including Mounjaro, metformin, Farxiga
Insulin basal bolus protocol.
GERD.
Continue PPI
Anticipated Discharge: 24 - 48 hours
Subjective/Interval History
-
Date of Service: August 05, 2024
Objective Data
-
Vital Signs:
Vital Signs
Temp Pulse Resp BP Pulse Ox
98.1 F 90 20 140/77 98
08/05/24 15:10 08/05/24 15:10 08/05/24 15:10 08/05/24 15:10 08/05/24 15:10
I&O
08/04/24 08/05/24 08/06/24
06:59 06:59 06:59
Intake Total 2560 / 2560
Output Total 705 / 705
Balance 1854 / 1854
Physical Exam
-
General: Well Developed and No Apparent Distress
HEENT: Normocephalic, Atraumatic and Moist Mucous Membranes
Respiratory: Clear to Auscultation
Cardiac: Regular Rhythm and S1/S2; Negative Murmur, Rub or Gallop
GI: Soft, Nontender, Nondistended and Normal Bowel Sounds; Negative Organomegaly
Rectal: Deferred by Provider
Musculoskeletal: No Clubbing, No Cyanosis and No Edema
Skin: Negative Rash
Neuro: Nonfocal/Grossly Intact
[2024-08-05 17:26] LABS: Glucose - Point of Care 97 mg/dl (70-99)
[2024-08-05] MEDS: PT'S OWN INSULIN PUMP - NovoLOG SC (18:21)
[2024-08-05 21:35] LABS: Glucose - Point of Care 141 mg/dl (70-99)
[2024-08-05 23:00] VITALS: BP 129/80
[2024-08-06 05:38] VITALS: BMI 29.0
[2024-08-06 07:30] VITALS: BP 129/76
[2024-08-06 07:35] LABS: Glucose - Point of Care 104 mg/dl (70-99)
--- NOTE | 2024-08-06 08:14 | PN.DE.MGMTRT ---
Insulin Management
- -
08/06/2024: Diabetes Management for Insulin Pump Follow up
Patient admitted 08/04 with c/o abdominal pain due to SBO.
PMH: ASCVD, HTN, T2DM, GERD, hiatal hernia. Prior to admission was taking Farxiga, Mounjaro and metformin.
A1C on admission 7.5%, Cr 0.8, eGFR > 60. Sees Apprentice Lineman Third Step routinely for diabetes care. Currently using the OmniPod 5 with DexCom G7, and NovoLog.
Patient is awake alert, oriented, sitting up in chair, offers no complaints, able to discuss diabetes management.
08/05 NG tube removed, has been advanced to low residue diet and tolerating well.
Glucose range yesterday 97 to 104; glucose fasting this AM 104.
Instructed pt on how to interpret and enter amt of CHO consumed per meal into his PDM in order for the pod to calculate the correct insulin bolus.
Will restart of Farxiga and metformin today since diet has been advanced.
Insulin pump settings:
Basal Carb Ratio Correction target
12am 1 8 25 110
8am 1.2 8 25 110
24 hour basal total 27.2
Active insulin 4 hours.
Pod was changed this morning. Will continue OmniPod at current settings.
Recommend to NOT restart Mounjaro at discharge as patient relates onset of symptoms related to Mounjaro currently and same symptoms with Ozempic which he took in the past. Will cont to follow. Discussed with nurse
Diabetes History
- -
Type of Diabetes: 2 requiring insulin
Pre-Admission Diabetes Regimen
Lab Results
Hemoglobin A1c 7.5 % (4.0-5.6) H 08/04/24 05:50
Insulin Pump Settings
IP Diabetes Regimen
08/05/24 08/05/24 08/05/24
14:43 17:19 21:31
POC Glucose 104 H 97 141 H
08/06/24
07:23
POC Glucose 104 H
Patient Education
[2024-08-06] MEDS: LOW STRENGTH ASPIRIN 81 MG PO (08:15)
[2024-08-06] MEDS: PROTONIX IV 40 MG IV (08:21)
[2024-08-06] MEDS: NSS (PRESERVATIVE FREE) 10 ML IV (08:21)
[2024-08-06] MEDS: PT'S OWN INSULIN PUMP - NovoLOG 10.4 UNIT SC (09:30)
--- NOTE | 2024-08-06 09:54 | W.PN.GS2 ---
Today's Communication / Plan
-
Low residue diet.
Dispo planning.
Assessment / Plan
-
Assessment: 64-year-old male with probable dysmotility/small bowel pseudoobstruction likely exacerbated by GLP-1 -Mounjaro; previous similar side effect with other GLP-1 3 years ago. No radiographic findings highly suggestive of mechanical
obstruction; no prior history of abdominal surgeries
symptomatically improved today.
Okay to advance to a low residue diet.
Recommend outpatient workup with GI.
If he is able to tolerate diet, okay to DC per surgery.
Surgery will sign off for now, please call with any questions or concerns.
Time Spent
Total Time Spent with Patient (in minutes): 20
Subjective Data
-
Date of Service: August 06, 2024
Interval Events:
No acute events overnight. Slept well. Pain Controlled. Denies Nausea/Vomiting, +bowel function. Tolerating diet.
Objective Data
-
Intake and Output
08/05/24 08/06/24 08/07/24
06:59 06:59 06:59
Intake Total 2560 / 2560 840 / 840
Output Total 705 / 705
Balance 1855 / 1855 840 / 840
Intake:
Oral fluids 180 / 180 840 / 840
IV fluids (Total) 2200 / 2200
n22 1000 / 1000
Amount instilled into GI Tube ( 180 / 180
Total)
Barton Sump 180 / 180
Output:
Gastrointestinal tube output ( 705 / 705
Total)
Barton Sump 600 / 600
Other:
Number of approximated MODERATE 1 3
amounts of urine
Vital Signs
Temp Pulse Resp BP Pulse Ox
98.1 F 86 22 129/76 98
08/06/24 07:30 08/06/24 07:30 08/06/24 07:30 08/06/24 07:30 08/06/24 07:30
Lab Results
08/04/24 05:50
08/04/24 05:50
Calcium 9.1 mg/dl (8.4-10.2) 08/04/24 05:50
Total Bilirubin 0.6 mg/dl (0.2-1.3) 08/03/24 22:13
AST 29 U/L (17-59) 08/03/24 22:13
ALT 33 U/L (0-50) 08/03/24 22:13
Alkaline Phosphatase 50 U/L (38-126) 08/03/24 22:13
Total Protein 7.7 g/dl (6.3-8.2) 08/03/24 22:13
Albumin 5.1 g/dl (3.5-5.0) H 08/03/24 22:13
Physical Exam
-
GENERAL/NEURO: Awake, Alert, no distress
CHEST: Unlabored breathing on RA
ABDOMEN: Soft, Non-Tender, mildly distended but this is his baseline.
Patient has a castro catheter: No
Patient has a central line: No
[2024-08-06 11:51] LABS: Glucose - Point of Care 154 mg/dl (70-99)
[2024-08-06] MEDS: PT'S OWN INSULIN PUMP - NovoLOG 5 UNIT SC (12:25)
--- NOTE | 2024-08-06 13:14 | W.DS.TRANS ---
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
-
Discharge Instructions:
Discharge Diagnosis/Procedures Partial bowel obstruction.
Diet Diabetic, Carb Controlled
Instructions:
Stand-Alone Forms:
Changes to Home Medications: Yes
Discharge Medications:
DC Medications w/original date entered in [facility]
clopidogrel 75 mg tablet 75 mg PO DAILY #90 tabs 02/13/24
dapagliflozin propanediol 10 mg tablet (Farxiga) 10 mg PO DAILY Diabetes 02/13/24
esomeprazole magnesium 20 mg capsule,delayed release (Nexium) 20 mg PO DAILY Gastrointestinal Issue 02/13/24
fenofibric acid 105 mg tablet 135 mg PO DAILY High Cholesterol 02/13/24
losartan 50 mg-hydrochlorothiazide 12.5 mg tablet 1 tab PO DAILY Blood Pressure 02/13/24
nitroglycerin 0.4 mg sublingual tablet 0.4 mg sublingual [id number] PRN chest pain #25 tabs 02/13/24
rosuvastatin 20 mg tablet 20 mg PO DAILY #90 tabs 02/13/24
aspirin 81 mg chewable tablet 81 mg PO DAILY Blood Clot Prevention/Tx 08/03/24
insulin pump-infusion set-blood glucose meter kit 08/03/24
metformin 1,000 mg tablet 1,000 mg PO BID Diabetes 08/03/24
Home Medication Changes
Stop Mounjaro
Pending Results: No
--- NOTE | 2024-08-06 13:46 | CM ---
CM reviewed chart, patient seen bedside, discussed plan for discharge today. Patient reports his son will provide transportation home. IMM verbally reviewed, provided with copy, placed in chart. CM will continue to follow for all discharge planning
needs.
Plan; home no needs.
[2024-08-06 14:00] VITALS: BP 124/75
== END 2024-08-06 14:25 | disposition home or self-care (01) | DRG 390 ==
LOC: 4 WEST ACU 04:55
PROVIDERS: Emergency Medicine; ADMITTING PHYSICIAN Hospitalist; ATTENDING PHYSICIAN Internal Medicine; EMERGENCY PHYSICIAN Student in an Organized Health Care Education/Training Program; FAMILY PHYSICIAN Internal Medicine; OTHER PHYSICIAN Surgery
DX: K56.600 Partial intestinal obstruction, unspecified as to cause (principal); T38.3X5A Adverse effect of insulin and oral hypoglycemic [antidiabetic] drugs, initial encounter; I25.10 Atherosclerotic heart disease of native coronary artery without angina pectoris; I10 Essential (primary) hypertension; E11.9 Type 2 diabetes mellitus without complications; K21.9 Gastro-esophageal reflux disease without esophagitis; K44.9 Diaphragmatic hernia without obstruction or gangrene; Z96.41 Presence of insulin pump (external) (internal); Z79.02 Long term (current) use of antithrombotics/antiplatelets; Z79.84 Long term (current) use of oral hypoglycemic drugs; Z79.85 Long-term (current) use of injectable non-insulin antidiabetic drugs; Z95.5 Presence of coronary angioplasty implant and graft; Z79.899 Other long term (current) drug therapy; Z79.82 Long term (current) use of aspirin; Z79.4 Long term (current) use of insulin
CPT/HCPCS: 74177; 80048; 80053; 82962; 83036; 83690; 85025; 85027; Q9967

== ENCOUNTER → 2024-09-07 08:49 | Outpatient (REF) | payer OTHER, SELFPAY | LOC: RAD 08:49 | PROVIDERS: ATTENDING PHYSICIAN Internal Medicine | DX: R14.0 Abdominal distension (gaseous) (principal); R10.13 Epigastric pain | CPT/HCPCS: 78226; A9537 ==

== ENCOUNTER → 2024-10-26 16:18 | Outpatient (REF) | payer OTHER, SELFPAY | LOC: RCS 16:18 | PROVIDERS: ATTENDING PHYSICIAN Student in an Organized Health Care Education/Training Program; FAMILY PHYSICIAN Internal Medicine | DX: I25.10 Atherosclerotic heart disease of native coronary artery without angina pectoris (principal) | CPT/HCPCS: 93306 ==

== ENCOUNTER 2024-11-20 22:18 | Emergency (ER) | payer OTHER, SELFPAY ==
[2024-11-20 22:27] VITALS: BP 105/70
[2024-11-20 22:59] VITALS: BMI 32.0
[2024-11-20 23:00] VITALS: BP 118/70
[2024-11-20 23:07] LABS: % Basophils 0.8 % (0-2); % Eosinophils 2.3 % (0-6); % Immature Granulocytes 1.5 % (0-0.5); % Lymphocytes 37.2 % (20.5-51.1); % Monocytes 9.8 % (1.7-9.3); % Neutrophils 48.4 % (42.2-75.2); Absolute Eosinophils 0.1 10^3/uL (0-0.7); Absolute Immature Granulocytes 0.1 10^3/uL (0-0.05); Absolute Monocytes 0.5 10^3/uL (0.1-0.6); Absolute Neutrophils 2.6 10^3/uL (1.4-6.5); Hematocrit 42.1 % (39.0-52.0); Hemoglobin 13.6 g/dL (13.0-18.0); Mean Corp Hgb Conc. 32.3 g/dL (33.0-37.0); Mean Corpuscular Hgb 24.5 pg (27.0-31.0); Mean Corpuscular Volume 75.9 fL (80.0-94.0); Mean Platelet Volume 9.7 fL (7.4-10.4); Nucleated Red Blood Cells % 0 % (-); Platelet Count 273 10^3/uL (130-400); Red Blood Cell Count 5.55 10^6/uL (4.70-6.10); Red Cell Dist. Width 15.5 % (11.5-14.5); White Blood Cell Count 5.3 10^3/uL (4.8-10.8)
--- NOTE | 2024-11-20 23:18 | EDRN ---
Since Friday night pt has felt 'drained and lightheaded' and today feelings worsened and pt developed chest pain around 1999. CP is constant and in the middle of his chest. Pt felt his body was aching around 1400, especially jaw, back and neck.
No diaphoresis, n/v, fever/chills/cough, urinary symptoms. Pt took sl ntg x 1 which he thinks helped the chest pain. Pain described as pressure and tight. Pt had IN 01/2024 and had a stent placed. Symptoms today are different than when pt had IN.
[2024-11-20 23:31] LABS: NT-proBNP < 20.0 pg/ml; Troponin I 0.013 ng/ml
[2024-11-20 23:35] LABS: ALT (SGPT) 25 U/L (0-50); AST (SGOT) 27 U/L (17-59); Albumin 4.4 g/dl (3.5-5.0); Alkaline Phosphatase 32 U/L (38-126); Blood Urea Nitrogen 26 mg/dl (9-20); Calcium 9.2 mg/dl (8.4-10.2); Carbon Dioxide 24 mmol/L (22-30); Chloride 107 mmol/L (98-107); Estimated Creatinine Clearance 70 ml/min; Glucose 308 mg/dl (70-99); Potassium 4.7 mmol/L (3.5-5.1); Sodium 140 mmol/L (135-145); Total Bilirubin 0.5 mg/dl (0.2-1.3); Total Protein 6.7 g/dl (6.3-8.2); eGFR > 60.00
[2024-11-21] VITALS: BP 120/67
[2024-11-21] MEDS: LOW STRENGTH ASPIRIN 324 MG PO (00:12)
--- NOTE | 2024-11-21 00:12 | ED.GENMED ---
History of Present Illness
General
Chief Complaint: Chest Pain
Source: patient and previous hospital records (Cardiac catheterization January 2024. 90% stenosis LAD-stenting of the LAD. Hospitalization July 2024 for abdominal pain, concern for partial small bowel obstruction.)
Exam Limitations: none
Time Seen by Provider: 11/20/24 23:55
Nursing documentation reviewed up to this point in time: agreed with except (Patient does not have a pacemaker. No prior history of IN.)
History of Present Illness
History of Present Illness:
This is a 64-year-old gentleman with history of hypertension, hyperlipidemia, CAD status post PTCA with stent to the LAD January 2024, history of GERD, insulin requiring diabetes.
He presents with 3-day history of generalized fatigue, intermittent lightheadedness and tonight he developed substernal chest pain, pressure that began around 7:30 PM. Chest pressure substernal, nonradiating, no associated symptoms. He denies
cough no shortness of breath, no nausea nor vomiting, no diaphoresis, no palpitations. He took 1 sublingual nitroglycerin with moderate improvement in pain. Continued with mild pain upon arrival to the ED but down notes complete relief of chest
pain. Chest pain was persisted tonight, did not seem to worsen with activity. Chest pain seem similar to previous episodes of angina January 2024 however upon review of records, at that time chest discomfort seemed more exertional in nature.
He denies leg pain or swelling. No headache. No change in weight. He denies dizziness nor sense of spinning. Blood sugars have been somewhat erratic but he denies hypoglycemic episodes.
He states most recent hemoglobin A1c was 7.4.
He follows with [facility] cardiology, Dr. Harjeet Andrews. He underwent unremarkable echocardiogram October 26.
Past History
Past History
ED Past Medical History: CAD, GERD (Hiatal hernia), HTN, Hypercholesterolemia and IDDM (Insulin requiring diabetes)
ED Past Surgical History: Cardiac (PTCA with stent to the LAD January 2024)
Social History
Tobacco: Non-smoker
Alcohol: None
Drug: None
Personal:
Living: with family
Employment: Employed
Family History
Family History: Diabetes (Father) and CAD (Mother)
Phy Exam
Physical Exam
Physical Exam:
GENERAL: 64-year-old gentleman appears his stated age, awake and alert, pleasant, appears in no acute distress.
EYE: anicteric
NECK: Supple, nontender, no meningismus, no significant adenopathy.
ENT: oral mucosa is moist. No rhinorrhea.
CARDIAC: Regular rate and rhythm. no murmur.
LUNGS: Clear breath sounds bilaterally, no acute respiratory distress, no wheezes/rales/rhonchi
ABDOMEN: Rotund, soft, nondistended, without focal tenderness
NEUROLOGICAL: Alert and oriented x3, no focal neuro deficits.
SKIN: Warm and dry, normal color, skin intact. No rash.
MUSCULOSKELETAL: No C/C/E. peripheral pulses are full and equal b/l. No palpable tenderness.
PSYCH: Normal and appropriate interaction.
Scores
Heart Score for Chest Pain Patients
STEMI patient?: No
History: Slightly or Non-Suspicious
ECG: Normal
Age: >/= 65 years
Risk Factors: >/= 3 Risk Factors or History of CAD
Troponin: </= Normal Limit
Heart Score for Chest Pain Patients: 4
Heart Score Risk: 20.3% MACE over next 6 weeks
Course
Orders/Labs/Results
Orders:
Orders
11/20/24 22:19
ECG [Electrocardiogram (*1)] Urgent
Reason for Study: Chest Pain
EKG- Treatment ONCE
11/20/24 23:01
Complete Blood Count/With Diff Urgent
Comprehensive Metabolic Panel Urgent
NT-proBNP Urgent
TSH Reflex To Free T4 Urgent
Comment: ADD ON
Troponin I Urgent
11/21/24 00:09
Aspirin Chewable [Low Strength Aspirin] 324 mg PO NOW STA
Nitroglycerin Ointment [Nitro-Bid] 0.5 inch TOPICAL NOW STA
11/21/24 00:10
Add On- LAB Urgent
Tests Added?: TSH w reflex to free T-4
0.9% Sodium Chloride 1000 ml [Nss] 1,000 ml IV BOLUS
11/21/24 00:12
PTT Urgent
11/21/24 00:25
Orthostatic VS- Treatment ONCE
11/21/24 01:00
Electrocardiogram (*1) Urgent
Reason for Study: Chest Pain
EKG- Treatment ONCE
11/21/24 01:24
Troponin I Urgent
Abnormal Lab Results
11/20/24
23:01
MCV 75.9 L fL
(80.0-94.0)
MCH 24.5 L pg
(27.0-31.0)
MCHC 32.3 L g/dL
(33.0-37.0)
RDW 15.5 H %
(11.5-14.5)
Abs Immat Gran (auto) 0.1 H 10^3/uL
(0-0.05)
Immature Gran % 1.5 H %
(0-0.5)
Monocytes % 9.8 H %
(1.7-9.3)
BUN 26 H mg/dl
(9-20)
Glucose 308 H mg/dl
(70-99)
Alkaline Phosphatase 32 L U/L
(38-126)
11/20/24 23:01
11/20/24 23:01
Vital Signs
Initial and Last Documented VS:
Initial Vital Signs
Temp Pulse Resp BP Pulse Ox
97.9 F 98 18 105/70 96
11/20/24 22:27 11/20/24 22:27 11/20/24 22:27 11/20/24 22:27 11/20/24 22:27
Last Documented Vital Signs
Temp Pulse Resp BP Pulse Ox
97.9 F 90 25 104/57 97
11/20/24 22:27 11/21/24 02:00 11/21/24 02:00 11/21/24 02:00 11/21/24 01:00
MDM/Problems Addressed
Differential Diagnosis Includes:
Concern for ACS, GERD, musculoskeletal chest pain.
3-day history of generalized fatigue, lightheadedness, concern for orthostasis/hypotension, other consideration is arrhythmia, viral syndrome, anemia, electrolyte abnormality, history is not suggestive of vertigo but also in the differential.
Nothing in history nor exam to suggest CVA.
EKG is unremarkable and unchanged from previous.
Thus far labs are unremarkable save for elevated random glucose of 300. There is no metabolic acidosis. BUN slightly elevated at 26, has trended up from previous with normal creatinine.
Troponin 0.013.
Will continue internet developer.
Will plan to repeat troponin along with EKG.
Will give 324 mg chewable aspirin now. Half inch Nitropaste.
Will check orthostatic vital signs
Chronic conditions affecting care: DM, HTN and CAD
*EKG
Interpreted by ED Provider?: Yes
Interpretation: normal
Comparison EKG: no changes (Unchanged from previous January 2024)
Rate: normal
Rhythm: sinus
Sanderson: normal axis
Interval: normal interval
QRS Pattern: normal QRS
Ischemia: no ischemia
*Safe Technician Interpretation
Rate: normal
Interpretation: normal
Rhythm: sinus
*Critical Care Note
Total Time (30-74mins, 75-104mins- exclusive of procedures): Not Applicable
Update Note
Update Note:
02:00
Patient remains chest pain-free and comfortable.
Orthostatic vital signs are negative.
TSH is normal.
Repeat troponin remains flat.
EKG is unremarkable, unchanged from previous.
At this point unclear as to patient's fatigue. May be mild viral syndrome in nature. BNP is normal, no evidence of CHF and lungs are clear to auscultation. He denies dyspnea on exertion, denies chest pain on exertion.
Cardiology notified. Discussed with Dr. Chou.
Will discharge to home with plan for prompt follow-up with network support manager.
Return precautions discussed.
ED Attending Note
-
Portions of this chart may have been created with voice recognition software.� Occasional wrong word or��sound alike� substitutions may have occurred due to the inherent limitations of voice recognition software.
Discharge Plan
Departure
Patient Disposition: Home (Routine Discharge)
Date of Disposition: 11/21/24
Time of Disposition: 03:05
Patient with high blood pressure during this ER visit?: No
Condition: Good
Discharge Problem:
Nonspecific chest pain, Fatigue
Instructions: Chest Pain CBC Follow Up
Prescriptions:
No Action
losartan-hydrochlorothiazide 50-12.5 mg Tablet
1 tab PO DAILY
esomeprazole magnesium [Nexium] 20 mg Capsule,Delayed Release(Dr/Ec)
20 mg PO DAILY
dapagliflozin propanediol [Farxiga] 10 mg Tablet
10 mg PO DAILY
nitroglycerin 0.4 mg tablet, sublingual
0.4 mg sublingual [id number] PRN (Reason: chest pain) Qty: 25 5RF
rosuvastatin 20 mg tablet
20 mg PO DAILY Qty: 90 5RF
clopidogrel 75 mg tablet
75 mg PO DAILY Qty: 90 10RF
aspirin 81 mg Tablet,Chewable
81 mg PO DAILY
Janumet 50-1,000 mg Tablet
1 tab PO BID
Continuous Insulin Pump
SC .CONTINUOUS
Patient Comments:
pt says his pump is at a continuous rate he does not know
fenofibrate
135 mg PO DAILY
Patient Comments:
pt says he take one capsule and it is 135mg however does not come in 135mg
Referrals:
UNKNOWN - PT DOES,NOT KNOW [Family Provider]
Interventions
Interventions:
*Risk Screen - Suicide Last Done: 11/20/24 22:27
*General Assessment Last Done: 11/20/24 22:27
*Neglect/Abuse Screening Last Done: 11/20/24 22:27
*ED- Fall Risk Assessment Last Done: 11/20/24 23:33
*ED COVID-19 Vaccine History Last Done: 11/20/24 22:59
*Nursing Disposition Last Done: 11/21/24 03:15
ED- Cardiac Assessment Last Done: 11/20/24 23:33
Discharge Date and Time
Discharge Date/Time: 11/21/24 03:15
Print Language: MALTESE
[2024-11-21] MEDS: NITRO-BID 0.5 INCH TOPICAL (00:13)
[2024-11-21] MEDS: NSS 1000 IV (00:17)
[2024-11-21 00:26] VITALS: BP 123/72; BP 129/73; BP 129/75; PULSE 104; PULSE 93; PULSE 99
[2024-11-21 00:43] LABS: APTT 29.7 Sec (23.4-35.0)
[2024-11-21 01:00] VITALS: BP 125/66
[2024-11-21 01:40] LABS: TSH Reflex To Free T4 2.52 uIU/ml (0.47-4.68)
[2024-11-21 01:56] LABS: Troponin I < 0.012 ng/ml
[2024-11-21 02:00] VITALS: BP 104/57
--- NOTE | 2024-11-21 03:14 | EDRN ---
Removed ntg paste from pt's chest per Dr Vasquez
== END 2024-11-21 03:15 | disposition home or self-care (01) ==
LOC: EMR 22:18
PROVIDERS: EMERGENCY PHYSICIAN Emergency Medicine
DX: R07.89 Other chest pain (principal); R53.83 Other fatigue; I10 Essential (primary) hypertension; E78.00 Pure hypercholesterolemia, unspecified; E11.9 Type 2 diabetes mellitus without complications; I25.10 Atherosclerotic heart disease of native coronary artery without angina pectoris; Z79.4 Long term (current) use of insulin; Z95.5 Presence of coronary angioplasty implant and graft
CPT/HCPCS: 96360; 99284; 80053; 83880; 84443; 84484; 85025; 85730; 93005